=== PATIENT | female | born 1970 | race Caucasian/White ===

== ENCOUNTER 2017-02-20 07:41 | Outpatient (CLI) | payer BC | END 2017-02-20 07:42 | disposition home or self-care (01) | LOC: BICMAMMO 07:41 | PROVIDERS: ATTEND Family Medicine | DX: Z12.31 Encounter for screening mammogram for malignant neoplasm of breast (principal); Z13.820 Encounter for screening for osteoporosis | CPT/HCPCS: 77063; 77067; G0202 ==

== ENCOUNTER 2017-09-19 06:57 | Outpatient (CLI) | payer BC | END 2017-09-19 06:58 | disposition home or self-care (01) | LOC: BICULT 06:57 | PROVIDERS: ATTEND Family Medicine | DX: N61.0 Mastitis without abscess (principal) ==

== ENCOUNTER 2018-02-25 08:11 | Outpatient (CLI) | payer BC | END 2018-02-25 08:12 | disposition home or self-care (01) | LOC: BICMAMMO 08:11 | PROVIDERS: ATTEND Family Medicine | DX: Z12.31 Encounter for screening mammogram for malignant neoplasm of breast (principal); Z80.3 Family history of malignant neoplasm of breast | CPT/HCPCS: 77063; 77067 ==

== ENCOUNTER 2018-04-24 10:11 | Emergency (ER) | payer BC ==
--- NOTE | 2018-04-24 11:30 | CT ---
CT HEAD WITHOUT CONTRAST: Date; 04/24/18 Multiple axial tomograms obtained through head without IV enhancement. INDICATION: Headache. Trauma. Fall with injury to head. Comparison made to a prior head CT from 2013. FINDINGS: Ventricles have normal size and position. There is no evidence of intracranial hemorrhage or contusio n. No mass or infarct seen. Sinuses and mastoids are well aerated. IMPRESSION: No acute abnormality identified. POS: [facility]
== END 2018-04-24 11:20 | disposition home or self-care (01) ==
LOC: SCSER 10:11
DX: S00.03XA Contusion of scalp, initial encounter (principal); Z79.01 Long term (current) use of anticoagulants; Z79.899 Other long term (current) drug therapy; V00.131A Fall from skateboard, initial encounter; Y93.51 Activity, roller skating (inline) and skateboarding
CPT/HCPCS: 70450

== ENCOUNTER 2019-03-02 08:43 | Outpatient (CLI) | payer BC ==
--- NOTE | 2019-03-02 11:04 | MMO ---
Bilateral MAMMO Bilat Screen [facility]. CLINICAL HISTORY: Patient is 48 years old and is seen for screening. The patient has no family history of breast cancer. The patient has no personal history of cancer. The patient has a history of bilateral Implants in February, and bilateral mastopexy in February,. VIEWS: The views performed were: bilateral craniocaudal with tomosynthesis; bilateral mediolateral oblique with tomosynthesis; and bilateral Implant displaced with tomosynthesis. FILMS COMPARED: The present examination has been compared to prior imaging studies performed at [facility] on 01/21/2015, 01/23/2016, 02/20/2017 and 02/25/2018. This study has been interpreted with the assistance of computer-aided detection. MAMMOGRAM FINDINGS: The breasts are heterogeneously dense, which could obscure a lesion on mammography. Normal implants are present. There are no suspicious masses, suspicious calcifications, or new areas of architectural distortion. IMPRESSION: THERE IS NO MAMMOGRAPHIC EVIDENCE OF MALIGNANCY. A ROUTINE FOLLOW-UP MAMMOGRAM IN 1 YEAR IS RECOMMENDED. THE RESULTS OF THIS EXAM WERE SENT TO THE PATIENT. ACR BI-RADS Category 2 - Benign finding MAMMOGRAPHY NOTE: 1. A negative mammogram report should not delay a biopsy if a dominant of clinically suspicious mass is present. 2. Approximately 10% to 15% of breast cancers are not detected by mammography. 3. Adenosis and dense breasts may obscure an underlying neoplasm. Reported by: ANNA MANUEL MD Electonically Signed: [id number]
== END 2019-03-02 08:44 | disposition home or self-care (01) ==
LOC: BICMAMMO 08:43
PROVIDERS: ATTEND Family Medicine
DX: Z12.31 Encounter for screening mammogram for malignant neoplasm of breast (principal); Z98.82 Breast implant status
CPT/HCPCS: 77063; 77067

== ENCOUNTER 2020-04-05 06:57 | Outpatient (CLI) | payer BC ==
[2020-04-05 10:39] LABS: #Basophils 0.1 10x3/uL (0.0-0.2); #Eosinphils 0.2 10x3/uL (0.0-0.5); #Monocytes 0.6 10x3/uL (0.0-1.1); #Neutrophils 5.1 10x3/uL (1.5-8.4); %Basophils 0.9 % (0.0-2.0); %Eosinophils 2.4 % (0.0-6.0); %Lymphocytes 25.9 % (18.0-47.0); %Monocytes 6.9 % (0.0-10.0); %Neutrophils 63.6 % (40.0-75.0); Mean Corpuscular HGB CONC 33.9 G/DL (32.0-36.0); Mean Corpuscular Hemoglobin 29.9 PG (27.0-33.0); Mean Corpuscular Volume 88.2 fl (80.0-100.0); Mean Platelet Volume 10.3 fl (7.4-10.4); Platelet Count 384 10x3/uL (130-400); RBC Distribution Width 13.5 % (11.5-14.5); Red Blood Cell (RBC) Count 5.02 10x6/uL (3.90-5.20); White Blood Cell (WBC) Count 7.9 10x3/uL (4.5-11.0)
[2020-04-05 20:52] LABS: SARS-CoV-2 PCR by NAA Not Detected (NotDetected)
== END 2020-04-05 06:58 | disposition home or self-care (01) ==
LOC: LABBT 06:57
PROVIDERS: ATTEND Orthopaedic Surgery Hand Surgery
DX: Z01.812 Encounter for preprocedural laboratory examination (principal); Z20.822 Contact with and (suspected) exposure to COVID-19; M65.4 Radial styloid tenosynovitis [de Quervain]
CPT/HCPCS: 85025; 87635; U0003; U0005

== ENCOUNTER 2020-04-08 06:22 | Day surgery (SDC) | payer BC ==
[2020-04-06 14:02] VITALS: BMI 234.3
[2020-04-08] MEDS ORDERED: Sodium Chloride 0.9% 10 ML ONE (08:03)
[2020-04-08] MEDS ORDERED: Bacitracin Zinc Ointment 30 gm TUBE ONE (08:03)
[2020-04-08] MEDS ORDERED: Betamet Acet/Betamet Na Ph 30 MG/5 ML VIAL ONE (08:03)
[2020-04-08] MEDS ORDERED: Bupivacaine PF 0.5% 30 ML VIAL ONE (08:03)
[2020-04-08] MEDS ORDERED: Fentanyl 100 MCG/2 ML VIAL ONE (08:12)
[2020-04-08] MEDS ORDERED: PROPOFOL 200 MG/20 ML VIAL ONE (09:04)
[2020-04-08] MEDS ORDERED: Lidocaine 1% PF 5 ML VIAL ONE (09:04)
[2020-04-08] MEDS ORDERED: Ketorolac Tromethamine 30 MG/ML VIAL ONE (09:04)
[2020-04-08] MEDS ORDERED: Ondansetron PF 4 MG/2 ML Vial ONE (09:04)
[2020-04-08] MEDS ORDERED: Promethazine HCl 25 MG/ML VIAL ONE (09:41)
[2020-04-08] MEDS ORDERED: Meperidine HCl/PF 25 MG/ML VIAL ONE (10:29)
== END 2020-04-08 11:55 | disposition home or self-care (01) ==
LOC: SDC 06:22
PROVIDERS: ATTEND Orthopaedic Surgery Hand Surgery
PROC: 0LB70ZZ Excision of Right Hand Tendon, Open Approach (ICD-10-PCS; principal; 2020-04-08)
DX: M65.4 Radial styloid tenosynovitis [de Quervain] (principal); K21.9 Gastro-esophageal reflux disease without esophagitis; Z79.82 Long term (current) use of aspirin; Z79.899 Other long term (current) drug therapy; Z88.5 Allergy status to narcotic agent; Z88.8 Allergy status to other drugs, medicaments and biological substances
CPT/HCPCS: J0690; J0702; J1885; J2175; J2405; J2550; J2704; J3010; J3490; S0020

== ENCOUNTER 2020-09-29 10:01 | Outpatient (CLI) | payer BC | END 2020-09-29 10:02 | disposition home or self-care (01) | LOC: LABBT 10:01 | PROVIDERS: ATTEND Surgery | DX: K21.9 Gastro-esophageal reflux disease without esophagitis (principal); Z20.822 Contact with and (suspected) exposure to COVID-19 | CPT/HCPCS: U0003; U0005 ==

== ENCOUNTER 2020-10-26 10:41 | Outpatient (CLI) | payer BC | END 2020-10-26 10:42 | disposition home or self-care (01) | LOC: DTY/OP 10:41 | PROVIDERS: ATTEND Surgery | DX: K21.9 Gastro-esophageal reflux disease without esophagitis (principal); E78.2 Mixed hyperlipidemia; I10 Essential (primary) hypertension; E66.9 Obesity, unspecified | CPT/HCPCS: 97802 ==

== ENCOUNTER 2022-01-15 16:28 | Outpatient (CLI) | payer BC | END 2022-01-15 16:29 | disposition home or self-care (01) | LOC: LABBT 16:28 | PROVIDERS: ATTEND Urology | DX: Z01.818 Encounter for other preprocedural examination (principal); N39.3 Stress incontinence (female) (male); F41.1 Generalized anxiety disorder; F41.8 Other specified anxiety disorders | CPT/HCPCS: 80048; 81001; 85027; 85610; 85730; 86850; 86900; 86901; 87086; 93005; 93010 ==

== ENCOUNTER 2022-01-18 05:47 | Day surgery (SDC) | payer BC ==
[2022-01-15 18:05] LABS: Bilirubin Neg (Negative); Blood, Urine Negative (Negative); Glucose, Urine (Dipstick) Normal (Negative); Ketone, Urine Negative (Negative); Leukocyte Negative (Negative); Nitrite Negative (Negative); Protein, Urine (Dipstick) Negative (Neg-Trace); Specific Gravity, Urine 1.005 (1.005-1.030); Urobilinogen Normal mg/dL (Less than 2)
[2022-01-15 18:12] LABS: INR-International Normal Ratio 0.9; PTT 25.5 sec (22.0-33.0); Prothrombin Time 10.1 sec (9.5-12.1)
[2022-01-15 18:14] LABS: Clarity Clear (Clear)
[2022-01-15 18:18] LABS: Bacteria/HPF Rare-Few HPF (None Seen); RBC/HPF 0-3 HPF (0-3); Squamous Epithelial 0-3 HPF (0-3); WBC/HPF 0-3 HPF (0-3)
[2022-01-15 18:23] LABS: Anion Gap 13 mmol/L (10-20); BUN (Urea Nitrogen) 13 mg/dL (9.8-20.1); Calc. Creatinine Clearance 0 mL/min (70-130); Calcium 9.4 mg/dL (7.8-10.44); Carbon Dioxide 25 mmol/L (22-29); Chloride 109 mmol/L (98-107); Estimated GFR 105; Glucose 90 mg/dL (70-105); Potassium 4.1 mmol/L (3.5-5.1); Sodium 143 mmol/L (136-145)
[2022-01-15 19:34] LABS: Hemoglobin 9.9 g/dL (12.0-15.5); Mean Corpuscular HGB CONC 33.1 g/dL (32.0-36.0); Mean Corpuscular Hemoglobin 29.8 pg (27.0-33.0); Mean Corpuscular Volume 90.1 fl (81.6-98.3); Mean Platelet Volume 10.5 fl (7.4-10.4); Platelet Count 392 10x3/uL (150-450); Red Blood Cell (RBC) Count 3.32 10x6/uL (3.90-5.03); White Blood Cell (WBC) Count 4.8 10x3/uL (3.5-10.5)
[2022-01-17 03:06] VITALS: BMI 25.3
[2022-01-18] MEDS ORDERED: fentaNYL PF 100 MCG/2 ML SYRINGE ONE (06:42)
[2022-01-18] MEDS ORDERED: Bupivacaine/Epinephrine 0.25% 30 ML VIAL ONE (06:46)
[2022-01-18] MEDS ORDERED: Neomycin-Polymyxin 1 ML AMP ONE (06:46)
[2022-01-18] MEDS ORDERED: Clindamycin/D5W 900 mg/50 ml Premix Bag ONE (07:10)
[2022-01-18] MEDS ORDERED: Sodium Chloride 0.9% 100 ML ONE (07:30)
[2022-01-18] MEDS ORDERED: CEFAZOLIN 2 GM VIAL ONE (07:30)
[2022-01-18] MEDS ORDERED: Estradiol 0.01% Vaginal Cream 42.5 gm Tube VAG SCH (08:45)
[2022-01-18] MEDS ORDERED: Estrogens, Conjugated 30 GM TUBE FS SCH (08:45)
== END 2022-01-18 11:35 | disposition home or self-care (01) ==
LOC: SDC 05:47
PROVIDERS: ATTEND Urology
PROC: 0TSD0ZZ Reposition Urethra, Open Approach (ICD-10-PCS; principal; 2022-01-18)
DX: N39.3 Stress incontinence (female) (male) (principal); K21.9 Gastro-esophageal reflux disease without esophagitis; Z79.82 Long term (current) use of aspirin; Z79.899 Other long term (current) drug therapy; Z88.5 Allergy status to narcotic agent; Z88.8 Allergy status to other drugs, medicaments and biological substances; Z98.84 Bariatric surgery status
CPT/HCPCS: 80048; 81001; 85027; 85610; 85730; 86850; 86900; 86901; 87086; C1771; J3490

== ENCOUNTER 2022-03-22 09:12 | Outpatient (CLI) | payer BC | END 2022-03-22 09:13 | disposition home or self-care (01) | LOC: BICMAMMO 09:12 | PROVIDERS: ATTEND Family Medicine Sports Medicine | DX: Z13.820 Encounter for screening for osteoporosis (principal); Z78.0 Asymptomatic menopausal state; M85.88 Other specified disorders of bone density and structure, other site | CPT/HCPCS: 77080 ==

== ENCOUNTER 2022-10-26 12:49 | Outpatient (CLI) | payer BC | END 2022-10-26 12:50 | disposition home or self-care (01) | LOC: BICMAMMO 12:49 | PROVIDERS: ATTEND Family Medicine Sports Medicine | DX: Z12.31 Encounter for screening mammogram for malignant neoplasm of breast (principal); Z80.3 Family history of malignant neoplasm of breast; Z98.82 Breast implant status | CPT/HCPCS: 77063; 77067 ==